=== PATIENT | female | born 1955 | race Caucasian/White ===

== ENCOUNTER 2017-09-14 09:09 | Emergency (ER) | payer OTHER ==
--- NOTE | 2017-09-14 09:37 | UC ---
Throat Pain/Nasal Charly HPI - HPI Summary HPI Summary: 61 year old male presents with complains of sinus congestion and pain. - History of Current Complaint Stated Complaint: SINUS COMPLAINT Time Seen by Provider: 09/14/17 09:37 Hx Obtained From: Patient Hx Last Menstrual Period: n/a Onset/Duration: Sudden Onset Severity: Moderate - Allergies/Home Medications Allergies/Adverse Reactions: Allergies Allergy/AdvReac Type Severity Reaction Status Date / Time Sulfa Antibiotics Allergy Mild Hives Verified 09/14/17 09:43 PMH/Surg Hx/FS Hx/Imm Hx Previously Healthy: Yes - Surgical History Surgical History: Yes Surgery Procedure, Year, and Place: hysterctomy. 2 c sections - Social History Alcohol Use: Daily Alcohol Amount: GLASS OF WINE DAILY Substance Use Type: None Smoking Status (MU): Never Smoked Tobacco Review of Systems Constitutional: Negative Skin: Negative Eyes: Negative ENT: Nasal Discharge, Sinus Congestion, Sinus Pain/Tenderness Respiratory: Negative Cardiovascular: Negative Gastrointestinal: Negative Genitourinary: Negative Motor: Negative Neurovascular: Negative Musculoskeletal: Negative Neurological: Negative Psychological: Negative All Other Systems Reviewed And Are Negative: Yes Physical Exam Triage Information Reviewed: Yes Vital Signs Reviewed: Yes Eye Exam: Normal ENT: Positive: Nasal congestion, Nasal drainage, Sinus tenderness Dental Exam: Normal Neck exam: Normal Neck: Positive: 1 Respiratory Exam: Normal Cardiovascular Exam: Normal Abdominal Exam: Normal Musculoskeletal Exam: Normal Neurological Exam: Normal Psychological Exam: Normal Skin Exam: Normal Throat Pain/Nasal Course/Dx - Differential Dx/Diagnosis Provider Diagnoses: sinus congestion Discharge - Discharge Plan Condition: Stable Disposition: HOME Prescriptions: Amoxicillin/Clavulanate TAB* [Augmentin TAB 875*] 875 mg PO BID #20 tab Magic M W2 Rito/Maal/Nyst/Lido* 5 ml SWISH SPIT QID PRN #120 ml PRN Reason: Sore Throat Methylprednisolone [Medrol Dosepak 4 MG*] 4 mg PO .SEE MALINI INSTRUCTION #21 tab Patient Education Materials: Laryngitis (ED), Abrasion (ED) Referrals: Samira Haley [Medical Doctor] - Rosio Rios MD [Primary Care Provider] -
[2017-09-14 09:46] VITALS: BP 110/57
== END 2017-09-14 09:59 | disposition home or self-care (01) ==
LOC: UCCORT 09:09
DX: R09.81 Nasal congestion (principal)
CPT/HCPCS: 99212; G0463